=== PATIENT | female | born 1935 | race Caucasian/White ===

== ENCOUNTER 2016-09-23 06:37 | Day surgery (SDC) | payer MEDICARE, MEDICAID ==
[2016-09-23 07:12] LABS: *BILIRUBIN,URIN NEGATIVE (NEGATIVE); *BLOOD, URINE NEGATIVE (NEGATIVE); *CLARITY,URINE CLEAR (CLEAR); *COLOR,URINE YELLOW (YELLOW); *KETONES,URINE NEGATIVE (NEGATIVE); *PROTEIN,URINE NEGATIVE (NEGATIVE); *UROBILINOGEN,URINE 0.2 E.U./dl (NORMAL); LEUKOCYTE ESTERASE ,URINE NEGATIVE (NEGATIVE); NITRITE, URINE NEGATIVE (NEGATIVE); PH,URINE 5.5 (5.0-8.0); UGLUCOSE NEGATIVE (NEGATIVE)
[2016-09-23] MEDS ORDERED: SEVOFLURANE 250 ML BOTTLE IH ONE (07:20)
[2016-09-23] MEDS ORDERED: PROPOFOL 200 MG/20 ML BOTTLE IV ONE (07:20)
[2016-09-23] MEDS ORDERED: LIDOCAINE HCL 1% 20 ML VIAL MC ONE (07:21)
[2016-09-23] MEDS ORDERED: ONDANSETRON 4 MG/2 ML VIAL IV ONE (07:21)
[2016-09-23] MEDS ORDERED: DEXAMETHASONE SOD PHOSPHATE 4 MG INJ IV ONE (07:21)
[2016-09-23] MEDS ORDERED: IV LACTATED RINGERS SOLUTION 1,000 ML BAG IV ONE (07:22)
[2016-09-23] MEDS ORDERED: CEFAZOLIN 1 G VIAL MC ONE (07:22)
[2016-09-23] MEDS ORDERED: POLYMYXIN B SULFATE 500,000 UNITS, BACITRACIN 50,000 UNITS, NORMAL SALINE 20 ML MC ONE ×3 (07:30)
[2016-09-23] MEDS ORDERED: BUPIVACAINE PF 0.5% 30 ML VIAL ONE (07:48)
[2016-09-23 08:13] LABS: BACTERIA,URINE FEW /HPF (NONE SEEN); RBC,URINE 0-3 /HPF (0-3); SQUAMOUS EPITHELIAL CELL,UR MODERATE /HPF (NONE SEEN); WBC,URINE 0-3 /HPF (0-3)
== END 2016-09-23 11:05 | disposition home or self-care (01) ==
LOC: DS 06:37
PROVIDERS: ATTEND Orthopaedic Surgery
DX: G56.02 Carpal tunnel syndrome, left upper limb (principal); I10 Essential (primary) hypertension; E78.00 Pure hypercholesterolemia, unspecified
CPT/HCPCS: A4649; A4663; J0690; J1100; J2405; J3490; J7120

== ENCOUNTER 2018-03-16 07:48 | Day surgery (SDC) | payer MEDICARE, MEDICAID ==
[2018-03-16] MEDS ORDERED: PROPOFOL 200 MG/20 ML BOTTLE IV ONE (07:49)
[2018-03-16] MEDS ORDERED: ONDANSETRON 4 MG/2 ML VIAL IV ONE (07:49)
[2018-03-16] MEDS ORDERED: SEVOFLURANE 250 ML BOTTLE IH ONE (07:49)
[2018-03-16] MEDS ORDERED: ATROPINE SULFATE 1 MG/ML VIAL IV ONE (07:49)
[2018-03-16] MEDS ORDERED: CEFAZOLIN 1 G VIAL MC ONE (07:49)
[2018-03-16 08:16] LABS: *BILIRUBIN,URIN NEGATIVE (NEGATIVE); *BLOOD, URINE NEGATIVE (NEGATIVE); *CLARITY,URINE CLEAR (CLEAR); *COLOR,URINE YELLOW (YELLOW); *KETONES,URINE NEGATIVE (NEGATIVE); *PROTEIN,URINE NEGATIVE (NEGATIVE); *UROBILINOGEN,URINE 0.2 E.U./dl (NORMAL); LEUKOCYTE ESTERASE ,URINE TRACE (NEGATIVE); NITRITE, URINE NEGATIVE (NEGATIVE); UGLUCOSE NEGATIVE (NEGATIVE)
[2018-03-16 08:17] LABS: BASOPHILS # (AUTO) 0.1 K/uL (0.0-8.0); BASOPHILS % (AUTO) 0.6 % (0.0-2.0); EOSINOPHILS # (AUTO) 0.2 K/uL (0.0-0.7); EOSINOPHILS % (AUTO) 1.6 % (0.0-7.0); HEMATOCRIT 43.8 % (31.2-41.9); HEMOGLOBIN 14.6 g/dL (10.9-14.3); LYMPHOCYTES # (AUTO) 9.9 K/uL (20.0-40.0); LYMPHOCYTES % (AUTO) 69.4 % (20.5-51.5); MEAN CORPUSCULAR HEMOGLOBIN 30.3 uug (24.7-32.8); MEAN CORPUSCULAR HGB CONC 33 g/dL (32.3-35.6); MEAN CORPUSCULAR VOLUME 91.2 fL (75.5-95.3); MONOCYTES # (AUTO) 0.6 K/uL (2.0-10.0); MONOCYTES % (AUTO) 4.5 % (0.0-11.0); NEUTROPHILS # (AUTO) 3.4 K/uL (1.8-8.9); NEUTROPHILS % (AUTO) 23.9 % (38.5-71.5); PLATELET COUNT (AUTO) 169 K/uL (179-408); RED BLOOD CELL COUNT(AUTO) 4.81 MIL/uL (3.63-4.92); WHITE BLOOD COUNT (AUTO) 14.3 K/uL (3.8-11.8)
[2018-03-16 08:34] LABS: BACTERIA,URINE FEW /HPF (NONE SEEN); SQUAMOUS EPITHELIAL CELL,UR FEW /HPF (NONE SEEN)
[2018-03-16 08:47] LABS: EOSINOPHILS % (MANUAL) 2 % (0-8); LYMPHOCYTES % (MANUAL) 72 % (20-40); MONOCYTES % (MANUAL) 6 % (2-10); NEUTROPHILS % (MANUAL) 19 % (42-75)
[2018-03-16 08:50] LABS: REACTIVE LYMPHOCYTES 1 % (0-0)
[2018-03-16] MEDS ORDERED: BUPIVACAINE PF 0.5% 30 ML VIAL ONE (09:44)
[2018-03-16] MEDS ORDERED: POLYMYXIN B SULFATE 500,000 UNITS, BACITRACIN 50,000 UNITS, NORMAL SALINE 20 ML MC ONE ×3 (09:45)
== END 2018-03-16 13:20 | disposition home or self-care (01) ==
LOC: DS 07:48
PROVIDERS: ATTEND Orthopaedic Surgery
DX: G56.01 Carpal tunnel syndrome, right upper limb (principal); I10 Essential (primary) hypertension; E78.5 Hyperlipidemia, unspecified; F15.90 Other stimulant use, unspecified, uncomplicated; Z79.899 Other long term (current) drug therapy; Z88.8 Allergy status to other drugs, medicaments and biological substances; Z98.890 Other specified postprocedural states; Z98.42 Cataract extraction status, left eye; Z98.41 Cataract extraction status, right eye; Z83.3 Family history of diabetes mellitus; Z82.49 Family history of ischemic heart disease and other diseases of the circulatory system; Z80.0 Family history of malignant neoplasm of digestive organs
CPT/HCPCS: 36415; 85025; A4649; A4663; J0461; J0690; J2405; J3490; J7120